=== PATIENT | male | born 1955 | race Caucasian/White ===

== ENCOUNTER → 2020-02-14 16:03 | Outpatient (BNVA) | payer OTHER, SELFPAY | PROVIDERS: Visit Provider Dermatology | DX: D48.9 Neoplasm of uncertain behavior, unspecified (principal) | CPT/HCPCS: 88304 ==

== ENCOUNTER 2024-04-11 06:00 | Outpatient (RCR) | payer OTHER, SELFPAY | END 2024-05-04 23:59 | disposition home or self-care (01) | LOC: GPT 06:00 | PROVIDERS: Visit Provider Nurse Practitioner | DX: M54.41 Lumbago with sciatica, right side (principal) | CPT/HCPCS: 97110; 97112; 97140; 97161; 97530 ==

== ENCOUNTER 2024-05-05 06:00 | Outpatient (RCR) | payer MEDICARE, SELFPAY | END 2024-06-01 23:59 | disposition home or self-care (01) | LOC: GPT 06:00 | PROVIDERS: Visit Provider Nurse Practitioner | DX: M54.41 Lumbago with sciatica, right side (principal) | CPT/HCPCS: 97110; 97112; 97140; 97530 ==

== ENCOUNTER 2024-06-02 06:00 | Outpatient (RCR) | payer MEDICARE, SELFPAY | END 2024-07-02 23:59 | disposition home or self-care (01) | LOC: GPT 06:00 | PROVIDERS: Visit Provider Nurse Practitioner | DX: M54.41 Lumbago with sciatica, right side (principal) | CPT/HCPCS: 97110; 97112; 97164; 97530 ==

== ENCOUNTER 2024-07-03 05:00 | Outpatient (RCR) | payer MEDICARE, SELFPAY | END 2024-08-01 23:59 | disposition home or self-care (01) | LOC: GPT 05:00 | PROVIDERS: Visit Provider Nurse Practitioner | DX: M54.41 Lumbago with sciatica, right side (principal) | CPT/HCPCS: 97110; 97112; 97530 ==

== ENCOUNTER 2024-08-02 05:00 | Outpatient (RCR) | payer MEDICARE, SELFPAY | END 2024-09-01 23:59 | disposition home or self-care (01) | LOC: GPT 05:00 | PROVIDERS: Visit Provider Nurse Practitioner | DX: M54.41 Lumbago with sciatica, right side (principal) | CPT/HCPCS: 97110 ==

== ENCOUNTER → 2024-10-18 09:26 | Outpatient (BNVA) | payer MEDICARE, SELFPAY | PROVIDERS: Visit Provider Nurse Practitioner Family | DX: D22.61 Melanocytic nevi of right upper limb, including shoulder (principal); L81.4 Other melanin hyperpigmentation; L82.1 Other seborrheic keratosis; L57.8 Other skin changes due to chronic exposure to nonionizing radiation; X32.XXXA Exposure to sunlight, initial encounter; L85.8 Other specified epidermal thickening; Q83.3 Accessory nipple; Z85.828 Personal history of other malignant neoplasm of skin; Z08 Encounter for follow-up examination after completed treatment for malignant neoplasm; Z85.820 Personal history of malignant melanoma of skin; L57.0 Actinic keratosis | CPT/HCPCS: 17000; 99213 ==